=== PATIENT | female | born 2000 | race Caucasian/White ===

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

== ENCOUNTER 2022-09-09 09:23 | Emergency (ER) | payer BC, MEDICAID, OTHER | END 2022-09-09 10:19 | LOC: MW.ED 09:23 | DX: N94.6 Dysmenorrhea, unspecified (principal); F19.10 Other psychoactive substance abuse, uncomplicated; Z02.89 Encounter for other administrative examinations; Z91.018 Allergy to other foods | CPT/HCPCS: 99283; 99284 ==

== ENCOUNTER 2022-10-09 01:15 | Emergency (ER) | payer BC, MEDICAID, OTHER | END 2022-10-09 01:30 | LOC: MW.ED 01:15 | DX: F19.10 Other psychoactive substance abuse, uncomplicated (principal); Z91.018 Allergy to other foods | CPT/HCPCS: 99282; 99283 ==

== ENCOUNTER 2022-10-26 19:48 | Emergency (ER) | payer BC, MEDICAID, OTHER | END 2022-10-26 20:10 | LOC: MW.ED 19:48 | DX: Z02.89 Encounter for other administrative examinations (principal); Z91.018 Allergy to other foods | CPT/HCPCS: 99282; 99283 ==

== ENCOUNTER 2023-03-03 23:52 | Emergency (ER) | payer BC, OTHER | END 2023-03-04 00:13 | LOC: MW.ED 23:52 | DX: Z02.89 Encounter for other administrative examinations (principal); Z91.018 Allergy to other foods | CPT/HCPCS: 99282; 99283 ==

== ENCOUNTER 2023-05-09 02:17 | Emergency (ER) | payer BC, OTHER ==
[2023-05-09] MEDS ORDERED: Ketorolac 30 MG/ML SDV IVPUSH ONE (02:51)
[2023-05-09] MEDS ORDERED: Ondansetron 4 MG/2 ML SDV IVPUSH ONE (02:51)
[2023-05-09] MEDS ORDERED: Sodium Chloride 0.9% 10 ML Syringe FLUSH PRN (02:51)
[2023-05-09] MEDS ORDERED: Sodium Chloride 0.9% 2.5 ML Syringe FLUSH PRN (02:51)
[2023-05-09] MEDS ORDERED: Sodium Chloride 0.9% 1,000 ML IV ONE (02:51)
[2023-05-09 03:24] LABS: BASOPHILS ABSOLUTE AUTO 0.04 K/uL (0.00-0.20); BASOPHILS PERCENT AUTO 0.4 % (0.0-1.0); EOSINOPHILS ABSOLUTE AUTO 0.15 K/uL (0.00-0.45); EOSINOPHILS PERCENT AUTO 1.4 % (0.0-6.0); HEMATOCRIT 34.1 % (37.0-47.0); HEMOGLOBIN 10.8 g/dL (12.0-16.0); IMMATURE GRAN ABSOLUTE AUTO 0.02 K/uL (0.00-0.05); IMMATURE GRAN PERCENT AUTO 0.2 % (0.0-0.4); LYMPHOCYTES ABSOLUTE AUTO 3.91 K/uL (1.00-4.80); LYMPHOCYTES PERCENT AUTO 37.6 % (24.0-44.0); MEAN CORPUSCULAR HEMOGLOBIN 23.9 pg (28.0-32.0); MEAN CORPUSCULAR HGB CONC 31.7 g/dL (32.0-36.0); MEAN CORPUSCULAR VOLUME 75.6 fL (83.0-99.0); MEAN PLATELET VOLUME 9.1 fL (9.4-12.3); MONOCYTES ABSOLUTE AUTO 0.86 K/uL (0.00-0.80); MONOCYTES PERCENT AUTO 8.3 % (0.0-8.0); NEUTROPHILS ABSOLUTE AUTO 5.42 K/uL (1.80-7.70); NEUTROPHILS PERCENT AUTO 52.1 % (41.0-71.0); PLATELET COUNT,PLT 283 K/uL (150-400); RED BLOOD CELL COUNT 4.51 M/uL (4.10-5.30)
[2023-05-09 03:52] LABS: A/G RATIO 0.9 (0.9-1.6); ALBUMIN 3.3 g/dL (3.4-5.0); BILIRUBIN TOTAL 0.2 mg/dL (0.2-1.0); CALCIUM 8.4 mg/dL (8.5-10.1); CARBON DIOXIDE,CO2 26.7 mmol/L (21.0-32.0); CREATININE 0.7 mg/dL (0.6-1.0); EST CRCL DRUG DOSING (CG) 124.67 mL/min; POTASSIUM,K 3.6 mmol/L (3.5-5.1); PROTEIN TOTAL,TP 6.9 g/dL (6.4-8.2)
[2023-05-09 04:09] LABS: BILIRUBIN,URINE NEGATIVE (NEGATIVE); COLOR,URINE YELLOW; GLUCOSE,URINE NEGATIVE (NEGATIVE); KETONES,URINE NEGATIVE (NEGATIVE); LEUKOCYTE ESTERASE,URINE MODERATE (NEGATIVE); NITRITE,URINE NEGATIVE (NEGATIVE); OCCULT BLOOD,URINE SMALL (NEGATIVE); PROTEIN,URINE NEGATIVE (NEGATIVE); UROBILINOGEN,URINE 0.2 EU/dL (<2.0)
[2023-05-09 04:27] LABS: APPEARANCE,URINE SLT CLOUDY; BACTERIA,URINE 1+ (NEGATIVE); EPITHELIAL CELLS,URINE FEW (NONE-FEW); RBC,URINE 0-5 (0-2/HPF); WBC,URINE 20-30 (0-5/HPF)
[2023-05-09 04:28] LABS: MUCUS,URINE MODERATE (NONE-MOD)
== END 2023-05-09 05:26 | disposition home or self-care (01) ==
LOC: MW.ED 02:17 → MERGE 02:17 → MW.ED 05:26
DX: N39.0 Urinary tract infection, site not specified (principal)
CPT/HCPCS: 36415; 74176; 80053; 81001; 83690; 84703; 85025; 87086; 96361; 96374; 96375; 99284; J1885; J2405; J3490; J7030

== ENCOUNTER 2023-05-24 23:03 | Emergency (ER) | payer BC, OTHER | END 2023-05-24 23:29 | LOC: MW.ED 23:03 | DX: T33.822A Superficial frostbite of left foot, initial encounter (principal); Z91.018 Allergy to other foods | CPT/HCPCS: 99283 ==

== ENCOUNTER 2023-12-04 23:56 | Emergency (ER) | payer BC | END 2023-12-05 01:14 | disposition home or self-care (01) | LOC: MW.ED 23:56 | DX: Z30.431 Encounter for routine checking of intrauterine contraceptive device (principal); F17.210 Nicotine dependence, cigarettes, uncomplicated; Z91.018 Allergy to other foods; Z75.8 Other problems related to medical facilities and other health care | CPT/HCPCS: 99283 ==

== ENCOUNTER 2023-12-09 03:44 | Emergency (ER) | payer BC ==
[2023-12-09 03:56] LABS: BASOPHILS ABSOLUTE AUTO 0.04 K/uL (0.00-0.20); BASOPHILS PERCENT AUTO 0.4 % (0.0-1.0); EOSINOPHILS ABSOLUTE AUTO 0.06 K/uL (0.00-0.45); EOSINOPHILS PERCENT AUTO 0.6 % (0.0-6.0); HEMATOCRIT 39.2 % (37.0-47.0); HEMOGLOBIN 12.6 g/dL (12.0-16.0); IMMATURE GRAN ABSOLUTE AUTO 0.02 K/uL (0.00-0.05); IMMATURE GRAN PERCENT AUTO 0.2 % (0.0-0.4); LYMPHOCYTES ABSOLUTE AUTO 2.42 K/uL (1.00-4.80); LYMPHOCYTES PERCENT AUTO 24.9 % (24.0-44.0); MEAN CORPUSCULAR HEMOGLOBIN 24.9 pg (28.0-32.0); MEAN CORPUSCULAR HGB CONC 32.1 g/dL (32.0-36.0); MEAN CORPUSCULAR VOLUME 77.3 fL (83.0-99.0); MEAN PLATELET VOLUME 9.3 fL (9.4-12.3); MONOCYTES PERCENT AUTO 6.2 % (0.0-8.0); NEUTROPHILS ABSOLUTE AUTO 6.58 K/uL (1.80-7.70); NEUTROPHILS PERCENT AUTO 67.7 % (41.0-71.0); PLATELET COUNT,PLT 380 K/uL (150-400); RED BLOOD CELL COUNT 5.07 M/uL (4.10-5.30); WHITE BLOOD CELL COUNT,WBC 9.72 K/uL (3.9-11.3)
[2023-12-09] MEDS: Sodium Chloride 0.9% 1,000 ML IV ONE (04:02)
[2023-12-09 04:24] LABS: A/G RATIO 0.9 (0.9-1.6); ALBUMIN 3.8 g/dL (3.4-5.0); BILIRUBIN TOTAL 0.6 mg/dL (0.2-1.0); CALCIUM 9.1 mg/dL (8.5-10.1); CARBON DIOXIDE,CO2 22.6 mmol/L (21.0-32.0); CREATININE 0.6 mg/dL (0.6-1.0); EST CRCL DRUG DOSING (CG) 138.85 mL/min; POTASSIUM,K 3.3 mmol/L (3.5-5.1)
[2023-12-09] MEDS: Potassium Chloride 20 MEQ Tab.ER PO ONE (04:42)
[2023-12-09 04:57] LABS: COLOR,URINE YELLOW; GLUCOSE,URINE NEGATIVE (NEGATIVE); KETONES,URINE 40 mg/dL (NEGATIVE); LEUKOCYTE ESTERASE,URINE TRACE (NEGATIVE); NITRITE,URINE NEGATIVE (NEGATIVE); OCCULT BLOOD,URINE LARGE (NEGATIVE); PROTEIN,URINE NEGATIVE (NEGATIVE); UROBILINOGEN,URINE 0.2 EU/dL (<2.0)
[2023-12-09 04:58] LABS: APPEARANCE,URINE SLT CLOUDY; BILIRUBIN,URINE SMALL (NEGATIVE)
[2023-12-09 05:04] LABS: BACTERIA,URINE FEW (NEGATIVE); MUCUS,URINE NOT SEEN (NONE-MOD); RBC,URINE 20-25 (0-2/HPF); SQUAMOUS EPITHELIAL CELLS,UR OCCASIONAL
[2023-12-09 05:07] LABS: AMPHETAMINES SCREEN, URINE NEGATIVE (CUTOFF=500); BARBITURATE SCREEN,URINE NEGATIVE (CUTOFF=200); BENZODIAZEPINES SCREEN,URINE NEGATIVE (CUTOFF=150); BUPRENORPHINE SCREEN,URINE NEGATIVE (CUTOFF=10); METHADONE SCREEN, URINE NEGATIVE (CUTOFF=200); METHAMPHETAMINES SCREEN, URINE NEGATIVE (CUTOFF=500); OXYCODONE SCREEN,URINE NEGATIVE (CUT0FF=100); PCP SCREEN,URINE NEGATIVE (CUTOFF=25); THC SCREEN,URINE 20 NG/ML PRESUMPTIVE POSITIVE (CUTOFF=50)
[2023-12-09] MEDS: Iopamidol 755 Mg/ML 100 ML Bottle IVPUSH ONE (05:22)
== END 2023-12-09 06:21 | disposition home or self-care (01) ==
LOC: MW.ED 03:44
DX: N93.9 Abnormal uterine and vaginal bleeding, unspecified (principal); K76.0 Fatty (change of) liver, not elsewhere classified; K80.20 Calculus of gallbladder without cholecystitis without obstruction; E87.6 Hypokalemia; Z91.018 Allergy to other foods
CPT/HCPCS: 36415; 74177; 80053; 80305; 81001; 81025; 82550; 83735; 85025; 93005; 96360; 99285; A9270; J7030; Q9967; 93010; 99284

== ENCOUNTER 2024-01-13 03:33 | Emergency (ER) | payer BC | END 2024-01-13 04:07 | disposition home or self-care (01) | LOC: MW.ED 03:33 | DX: H93.8X1 Other specified disorders of right ear (principal); F17.210 Nicotine dependence, cigarettes, uncomplicated; Z75.8 Other problems related to medical facilities and other health care; Z91.018 Allergy to other foods | CPT/HCPCS: 99282 ==

== ENCOUNTER 2024-02-08 01:53 | Emergency (ER) | payer BC | END 2024-02-08 02:25 | LOC: MW.ED 01:53 | DX: F10.129 Alcohol abuse with intoxication, unspecified (principal); Z91.018 Allergy to other foods | CPT/HCPCS: 99283 ==

== ENCOUNTER 2024-02-16 19:17 | Emergency (ER) | payer BC ==
[2024-02-17 06:54] LABS: AMPHETAMINES SCREEN, URINE NEGATIVE (CUTOFF=500); BARBITURATE SCREEN,URINE NEGATIVE (CUTOFF=200); BENZODIAZEPINES SCREEN,URINE NEGATIVE (CUTOFF=150); BUPRENORPHINE SCREEN,URINE NEGATIVE (CUTOFF=10); METHADONE SCREEN, URINE NEGATIVE (CUTOFF=200); METHAMPHETAMINES SCREEN, URINE NEGATIVE (CUTOFF=500); OXYCODONE SCREEN,URINE NEGATIVE (CUT0FF=100); PCP SCREEN,URINE NEGATIVE (CUTOFF=25); THC SCREEN,URINE 20 NG/ML PRESUMPTIVE POSITIVE (CUTOFF=50)
== END 2024-02-17 08:45 | disposition home or self-care (01) ==
LOC: MW.ED 19:17
DX: R41.82 Altered mental status, unspecified (principal); F10.920 Alcohol use, unspecified with intoxication, uncomplicated; F12.90 Cannabis use, unspecified, uncomplicated; R45.1 Restlessness and agitation; F19.11 Other psychoactive substance abuse, in remission; Z91.018 Allergy to other foods
CPT/HCPCS: 36415; 80305-QW; 80307; 81025; 99283; 99285